=== PATIENT | female | born 1975 | race Caucasian/White ===

== ENCOUNTER 2025-03-25 16:18 | Emergency (ER) | payer OTHER, SELFPAY ==
--- OUTSIDE RECORDS SUMMARY | 2024-10-18 12:45 | XMS_ITS ---
Author Organization [facility] Servic es Address [address] [place] [address] Care Team Providers Care Gas Line Repairer Name Role Phone Brittney Dillon Primary Care Provider [phone] Allergies No Known Allergies REASON FOR VISIT MED REFILL Medications Medication SIG (Take, Route, Frequency, Duration) Notes Start Date End Date Status Levothyroxine Sodium 100 MCG Tablet 1 ta blet in the morning on an empty stomach Orally Once a day; Duration: 30 day(s) ActiveFLUoxetine HCl 20 MG Capsule1 capsule Orally Once a day; Duration: 30 days 5ActiveVyvanse 30 MG Capsule1 capsule in the morning Orally Once a day; Duration: 30 days5ActiveVentolin HFA 108 (90 Base) MCG/ACT Aerosol Solution2 puff as needed Inhalation every 4 hrs; Duration: 30 dudqAZA6407/29/2021 Active Vital Signs Temperature 97.0 degrees Fahrenheit 10/19/19 25 Blood pressure systolic 133 mm Hg 10/19/19 25 Blood pressure diastolic 78 mm Hg 025 Heart Rate 81 /min 10/18/2024 Respiratory Rate 16 /min 10/18/2024 Height 5 ft 6 in in 10/18/2024 Weight 116 lbs 10/18/2024 BMI 18.72 kg/m2 10/18/2024 Oximetry 97 % 10/18/2024 Encounters Encounter Location Date Provider Diagnosis [facility] [address] [facility] [place] [address] 10/18/2024 Brittney Dillon Acquired hypothyroid ism E03.9 ; Major depressive disorder, recurrent episode, moderate F33.1 and Adult ADHD F90.9 Assessments Encounter Date Diagnosis (ICD Code) Assessment Notes Treatment Notes Treatment Clinical Notes Section Notes 10/18/2024 Acquired hypothyroidism (ICD-10 - E03.9) 10/18/2024Major depressive disorder, recurrent episode, moderate (ICD-10 - F33.1)10/18/2024dult ADHD (ICD-10 - F90.9)10/18/2024OtherBody Mass Index: Care Instructions material was published, Body Mass Index: Care Instructions material was printed Plan Of Treatment Medication Medication Name Sig Start Date Stop Date Notes Levothyroxine Sodium 100 MCG Tablet 1 ta blet in the morning on an empty stomach Orally Once a day; Duration: 30 day(s) FLUoxetine HCl 20 MG Capsule1 capsule Orally Once a day; Duration: 30 days 09/18/2024Vyvanse 30 MG Capsule1 capsule in the morning Orally Once a day; Duration: 30 days10/18/2024Treatment Notes Assessment Notes Other Body Mass Index: Car e Instructions material was published, Body Mass Index: Care Instructions material was printed Next Appt Details Provider Name:Ro flynn, 03/31/2025 11:15:00 AM, [address] [place], [address], Provider Name:Ro flynn, 04/07/2025 11:45:00 AM, [address] [place], [address], Provider Name:Ro flynn, 04/14/2025 11:00:00 AM, [address] [place], [address], Provider Name:Brittney dee, 04/21/2025 09:30:00 AM, [address], [address], [place], [address], Provider Name:Ro flynn, 04/21/2025 10:15:00 AM, [address] [place], [address], Provider Name:Ro flynn, 04/28/2025 12:30:00 PM, [address] [place], [address], History and Physical Notes * HPI (History of Present Illness) CategorySub-CategoryDetailNotesCategory NotesConstitutionalPt is here today for to transfer care and med refills. Pt states the fluoxetine may need to be incre ased. Pt states when she was last here jeff ordered her to go get labs done for her hormones and she has not gotten them done yet due to family issues. Progress Notes * CAMRON GONZALEZ MDOB: (49 yo F)Acc No.[id number]:10/18/2024 Progress Notes Patient: Fidelina CAMRON CALLES Michael :?Brittney Bolivar Dillon, ARPITA-CDOB:1975???Age:48 Y ???Sex:FemaleDate:10/18/2024Phone:[phone]:[address] [place], [place] [id number] Subjective: * Chief Complaints: * M ED REFILL * HPI: ???Constitutional:?Pt is here today for to transfer care and med refills. Pt states the fluoxetine may need to be increased. Pt states when she was last here jeff ordered her to go get labs done for her hormones and she has not gotten them done yet due to family issues. * ROS: ???General Review of Systems:?General?Denies fever, chills, weight loss.?Eyes?Denies vision changes, no double vision or blurry vision. .?HEENT?Denies sore throat, ear pain., Denies fevers , chills, Denies nasal congestion, or pressure, Denies hoarseness, change in voice, difficulty swallowing.?Cardiovascular?Denies chest pain, palpitations, exertional dyspnea.?Respiratory?Denies cough, dyspnea, wheezing, sputum production, hemoptysis.?Gastrointestinal?Denies abdominal pain, nausea, vomiting, diarrhea, or constipation. Denies blood in stool or changes in bowel habits..?Genitourinary?Denies urgency, frequency, dysuria, hem aturia.?Musculoskeletal?Denies joint pain, myalgias.?Dermatology?Denies rashes o r lesions.?Neurological?Denies any lightheadedness, dizziness, headache, new numbness or tingling in hands or feet. .? * Medical History: Mild Intermittent Asthma Hypothyroidism Anxiety and Depression PTSD ADHD Vitiligo Retrolisthesis of C3 on C4 Medical History Verified * Surgical History: Right wrist surgeries x 3 ? Ablation ? Tubal Ligation 2021? Surgical History verified.? * Hospitalization/Major Diagno stic Procedure: No Hospitalization Documented.? Hospitalization Verified.? * Family History: F ather: alive, diagnosed with Cancer, Hypertension. M other: alive, diagnosed with Hypertension. 1 brother(s) , 1 sister(s) . 1 son(s) , 1 daughter(s) - healthy. . F amily History Verified.. * Social History: Social History Verified. No Social History documented. * Medications: T akingFLUoxetine HCl 10 MG Capsule 1 capsule Orally Once a day Levothyroxine Sodium 100 MCG Tablet 1 tablet in the morning on an empty stomach Orally Once a day Ventolin HFA 108 (90 Base) MCG/ACT Aerosol Solution 2 puff as needed Inhalation every 4 hrs , Notes to Pharmacist: PRNVyvanse 30 MG Capsule 1 capsule in the morning Orally Once a day Medication List reviewed and reconciled with the patientTaking FLUoxetine HCl 10 MG Capsule 1 capsule Orally Once a day Taking Levothyroxine Sodium 100 MCG Tablet 1 tablet in the morning on an empty stomach Orally Once a day Taking Ventolin HFA 108 (90 Base) MCG/ACT Aerosol Solution 2 puff as needed Inhalation every 4 hrs , Notes to Pharmacist: PRNTaking Vyvanse 30 MG Capsule 1 capsule in the morning Orally Once a day Medication List reviewed and reconciled with the patient * Allergies: N .K.D.A.yesAllergies Verified. Objective: * Vitals: H t: 5 ft 6 in, Wt: 116 lbs, BMI:18.72Index, Temp: 97.0 F, BP: 133/78 mm Hg, SaO2:97%, HR: 81 /min, RR: 16 /min. Assessment: * Assessment: 1.?Acquired hypothyroidism - E03.9???2.?Major depressive disorder, recurrent episode, moderate - F33.1???3.?Adult ADHD - F90.9??? Plan: * Treatment: Refill Levothyroxine Sodium Tablet, 100 MCG, 1 tablet in the morning on an empty stomach, Orally, Once a day, 30 day(s), 30, Refills 1.??2.?Major depressive disorder, recurrent episode, moderate? Refill FLUoxetine HCl Capsule, 20 MG, 1 capsule, Orally, Once a day, 30 days, 30, Refills 1.? 3.?Adult ADHD? Refill Vyvanse Capsule, 30 MG, 1 capsule in the morning, Orally, Once a day, 30 days, 30 Capsule, Refills 0.??4.?Others? Notes: Body Mass Index: Care Instructions material was published, Body Mass Index: Care Instructions material was printed?? * Preventive Medicine: ??COUNSELING:?Communication to patient:?Counseling for Nutrition Provided?Yes ?Counseling for Physical Activity Provided?Yes ?BMI management provided?Yes ?Nutrition/Dietary Counseling provided Yes Billing Information: * Procedure Codes: * Electronic signature of Brittney Dillon CNP on 03/25/2025 at 05:05 PM EDTSign off status: Pending * Provider: KIMBERLYN Watson Date: 0 10/18/2024 Generated for Printing/Faxing/eTransmitting on:?03/25/2025 05:05 PM EDT
--- OUTSIDE RECORDS SUMMARY | 2025-02-13 09:15 | XMS_ITS ---
Author Organization [facility] Address [address] [place] [address] Care Team Providers Care Sales And Leasing Consultant Name Role Phone Brittney Dillon Primary Care Provider Ro Castro Unavailable [phone] REASON FOR VISIT BH F/U Encounters Encounter Location Date Provider Diagnosis [facility] [address] [place] [address] 02/13/2025 Ro Castro Plan Of Treatment Next Appt Details Provider Name:Ro flynn, 03/31/2025 11:15:00 AM, [address] [place], [address], Provider Name:Ro flynn, 04/07/2025 11:45:00 AM, [address], [place], [address], Provider Name:Ro flynn, 04/14/2025 11:00:00 AM, [address], [place], [address], Provider Name:Brittney dee, 04/21/2025 09:30:00 AM, [address], [address], [place], [address], Provider Name:Ro flynn, 04/21/2025 10:15:00 AM, [address], [place], [address], Provider Name:Ro flynn, 04/28/2025 12:30:00 PM, [address] [place], [address], Progress Notes * CAMRON GONZALEZ MDOB: (49 yo F)Acc No.[id number]:02/13/2025 Behavioral Health Patient: Fidelina ANGELCAMRON TEAGUE :?Ro NogueramDOB:1975???Age:49 Y???Sex: FemaleDate:02/13/2025Phone:[phone]:[address] [place], [place] [id number]:Brittney Dillon Subjective: * Chief Complaints: * B H F/U Billing Information: * Procedure Codes: Care Plan Details* * Electronic signature of HEATH Esquivel on 03/25/2025 at 05:04 PM EDTSign off status: Pending * Provider: Mariel Castro Date: 0 02/13/2025 Generated for Printing/Faxing/eTransmitting on:?03/25/2025 05:04 PM EDT
--- OUTSIDE RECORDS SUMMARY | 2025-02-24 07:15 | XMS_ITS ---
Author Organization [facility] Address [address] [place] [address] Care Team Providers Care Head Filter Press Tender Name Role Phone Brittney Dillon Primary Care Provider [phone] Ro Castro Unavailable [phone] REASON FOR VISIT BH F/U Encounters Encounter Location Date Provider Diagnosis [facility] [address] [place] [address] 02/24/2025 Ro Castro Plan Of Treatment Next Appt Details Provider Name:Ro flynn, 03/31/2025 11:15:00 AM, [address] [place], [address], Provider Name:Ro flynn, 04/07/2025 11:45:00 AM, [address], [place], [address], Provider Name:Ro flynn, 04/14/2025 11:00:00 AM, [address], [place], [address], Provider Name:Brittney dee, 04/21/2025 09:30:00 AM, [address], [address], [place], [address], Provider Name:Ro flynn, 04/21/2025 10:15:00 AM, [address], [place], [address], Provider Name:Ro flynn, 04/28/2025 12:30:00 PM, [address] [place], [address], Progress Notes * CAMRON GONZALEZ MDOB: (49 yo F)Acc No.[id number]:02/24/2025 BH F/U - Patient Patient: Fidelina CAMRON CALLES :?Ro NogueramDOB:1975???Age:49 Y???Sex: FemaleDate:02/24/2025Phone:[phone]:[address] [place], [place] [id number]:Brittney Dillon Subjective: * Chief Complaints: * B H F/U Billing Information: * Procedure Codes: Care Plan Details* * Electronic signature of HEATH Esquivel on 03/25/2025 at 05:04 PM EDTSign off status: Pending * Provider: Mariel Castro Date: 0 02/24/2025 Generated for Printing/Faxing/eTransmitting on:?03/25/2025 05:04 PM EDT
--- OUTSIDE RECORDS SUMMARY | 2025-03-17 09:00 | XMS_ITS ---
Author Organization [facility] Address [address] [place] [address] Care Team Providers Care Global Clinical Leader Name Role Phone Wilma Brittney Primary Care Provider Ro Castro Unavailable [phone] REASON FOR VISIT F/U Medications Medication SIG (Take, Route, Frequency, Duration) Notes Start Date End Date Status Vyvanse 30 MG Capsule 1 capsule in the m orning Orally Once a day; Duration: 30 days 5ActiveFLUoxetine HCl 20 MG Capsule1 capsule Orally Once a day; Duration: 30 days5ActivePrempro 0.3-1.5 MG TabletOral; Duration: 28 DaysActiveSpironolactone 25 MG TabletOral; Duration: 30 DaysActiveVentolin HFA 108 (90 Base) MCG/ACT Aerosol Solution2 puff as needed Inhalation every 4 hrs; Duration: 30 vmogINT73/24/2022ActiveLevothyroxine Sodium 100 MCG Tablet1 tablet in the morning on an empty stomach Orally Once a day; Duration: 30 day(s)Active Encounters Encounter Location Date Provider Diagnosis [facility] [address] [place] [address] 03/17/2025 Ro Castro Post traumatic stres s disorder (PTSD) F43.10 and Major depressive disorder, recurrent episode, moderate F33.1 Assessments Encounter Date Diagnosis (ICD Code) Assessment Notes Treatment Notes Treatment Clinical Notes Section Notes 03/17/2025 Post traumatic stress disorder ( PTSD) (ICD-10 - F43.10) 03/17/2025Major depressive disorder, recurrent episode, moderate (ICD-10 - F33.1) Plan Of Treatment Next Appt Details Follow Up: 3 Weeks, Reason: Provider Name:Ro flynn, 03/31/2025 11:15:00 AM, [address], [place], [address], Provider Name:Ro flynn, 04/07/2025 11:45:00 AM, [address], [address], [place], [address], Provider Name:Ro flynn, 04/14/2025 11:00:00 AM, [address], [place], [address], Provider Name:Brittney dee, 04/21/2025 09:30:00 AM, [address], [address], [place], [address], Provider Name:Ro flynn, 04/21/2025 10:15:00 AM, [address], [place], [address], Provider Name:Ro flynn, 04/28/2025 12:30:00 PM, [address], [place], [address], Progress Notes * CAMRON GONZALEZ MDOB: (49 yo F)Acc No.[id number]:03/17/2025 F/U - Family Patient: ACMRON BAÑUELOS :?Ro NogueramDOB:1975???Age:49 Y???Sex: FemaleDate:03/17/2025Phone:[phone]:[address] [place], [place] [address]Pcp:Brittney Dillon Subjective: * Chief Complaints: * 1 . F/U. * Medications: T aking Levothyroxine Sodium 100 MCG Tablet 1 tablet in the morning on an empty stomach Orally Once a day , Taking FLUoxetine HCl 20 MG Capsule 1 capsule Orally Once a day , Taking Prempro 0.3-1.5 MG Tablet Oral , Taking Spironolactone 25 MG Tablet Oral , Taking Ventolin HFA 108 (90 Base) MCG/ACT Aerosol Solution 2 puff as needed Inhalation every 4 hrs , Notes to Pharmacist: PRN, Taking Vyvanse 30 MG Capsule 1 capsule in the morning Orally Once a day Assessment: * Assessment: 1.?Post traumatic stress disorder (PTSD) - F43.10 (Primary)???2.?Major depr essive disorder, recurrent episode, moderate - F33.1??? Plan: * Procedure Codes: 9 0837 PSYTX EST PT&/FAMILY 60 MIN (53+) * Follow Up: 3 Weeks Billing Information: * Procedure Codes: 06601 PSYTX EST PT&/FAMILY 60 MIN (53+). Care Plan Details* Problem B H F/U Progress Note PresentAt Appointment:?Patient Session Type:?Face to Face Start Time/End Time:?Start: 1:06End: 2:05 Mental Status ExaminationOrientation:?Oriented x 4 Mood:?Depressed;Anxious Affect:?Appropriate Insight/Judgment:?Fair Thought Process:?Circumstantial Speech:?Normal InterventionRisk Assessment:?PT denies all areas of risk. No contrary indications present. Therapy Modality:?cognitive behavioral Interventions:?assess safety risks;cognitive challenging;cognitive refocusing;cognitive reframing;encourage expression of needs;exploration of relationship problems;exploration of coping skills;emotion regulation;healthy boundaries;increase awareness of warning signs to triggers;reflective listening;problem-solve barriers;supportive reflection;process trauma/significant life events;role-play/behavioral reversal;mindfulness training;identify unmet emotional needsComments :SENIOR SOLUTIONS WORKFLOW CONSULTANT offered supportive listening and validation of patients feelings. SENIOR SOLUTIONS WORKFLOW CONSULTANT provided feedback as needed. SENIOR SOLUTIONS WORKFLOW CONSULTANT worked with patient on processing the changes in her life. SENIOR SOLUTIONS WORKFLOW CONSULTANT worked with patient on challenging her thoughts, worked on reframing and redirection. SENIOR SOLUTIONS WORKFLOW CONSULTANT encouraged pt to journal her emotions and to work on her own self-esteem and goals. Response to Intervention:?Patient reports that she has been struggling with her emotions and the changes in her life. Patient has been struggling with the break up and moving home to her mothers home and feels like a failure. Patient discussed her emotions, self-awareness and trying to figure out what she wants and who she is? Patient reports she has just been keeping herself busy. Progress:?low * ign off status: Completed true * Provider: Mariel Castro Date: Generated for Printing/Faxing/eTransmitting on:?03/25/2025 05:05 PM EDT
--- OUTSIDE RECORDS SUMMARY | 2025-03-24 07:00 | XMS_ITS ---
Author Organization [facility] Address [address] [place] [address] Care Team Providers Care Senior Control Systems Engineer Name Role Phone Brittney Dillon Primary Care Provider Ro Castro Unavailable [phone] REASON FOR VISIT BH F/U Encounters Encounter Location Date Provider Diagnosis [facility] [address] [place] [address] 03/24/2025 Ro Castro Plan Of Treatment Next Appt Details Provider Name:Ro flynn, 03/31/2025 11:15:00 AM, [address] [place], [address], Provider Name:Ro flynn, 04/07/2025 11:45:00 AM, [address], [place], [address], Provider Name:Ro flynn, 04/14/2025 11:00:00 AM, [address], [place], [address], Provider Name:Brittney dee, 04/21/2025 09:30:00 AM, [address], [address], [place], [address], Provider Name:Ro flynn, 04/21/2025 10:15:00 AM, [address], [place], [address], Provider Name:Ro flynn, 04/28/2025 12:30:00 PM, [address] [place], [address], Progress Notes * CAMRON GONZALEZ MDOB: (49 yo F)Acc No.[id number]:03/24/2025 BH F/U - Patient Patient: Fidelina CAMRON CALLES :?Ro NogueramDOB:1975???Age:49 Y???Sex: FemaleDate:03/24/2025Phone:[phone]:[address] [place], [place] [address]Pcp:Brittney Dillon Subjective: * Chief Complaints: * B H F/U Billing Information: * Procedure Codes: Care Plan Details* * Electronic signature of HEATH Esquivel on 03/25/2025 at 05:04 PM EDTSign off status: Pending * Provider: Mariel Castro Date: Generated for Printing/Faxing/eTransmitting on:?03/25/2025 05:04 PM EDT
[2025-03-25 16:25] VITALS: BP 128/80; PULSE 84; TEMP 36.6; O2SAT 100; BMI 18.4
--- NOTE | 2025-03-25 16:38 | ED.WOUNDLAC1 ---
HPI - Wound/Laceration General Chief Complaint: Wound/Laceration Stated Complaint: Laceration Time Seen by Provider: 03/25/25 16:34 Source: patient Mode of arrival: walk-in Limitations: no limitations History of Present Illness HPI narrative: 49 year old female presents to the ED for a laceration to her left index finger. She accidentally cut herself with scissors at work today. Denies weakness, N/T. She has full ROM to the digit. Tetanus status is unknown. States she applied skin glue to the area, but could not get the bleeding under control. She has since removed the skin adhesive. Related Data Home Medications ?Medication ?Instructions ?Recorded ?Confirmed No Known Home Medications 03/25/25 03/25/25 Allergies Allergy/AdvReac Type Severity Reaction Status Date / Time No Known Drug Allergies Allergy Verified 03/25/25 16:25 Review of Systems ROS Constitutional Denies: fever or chills Cardiovascular Denies: chest pain Respiratory Denies: shortness of breath Musculoskeletal Reports: extremity pain Integumentary/Breast Reports: skin tenderness and sores Neurological Denies: numbness in extremities or weakness in extremities PFSH PFSH Social History Little interest or pleasure in doing things: not at all Feeling down, depressed, or hopeless: not at all Exam Constitutional Vital Signs, click to edit/add: Last Vital Signs Temp 97.8 F 03/25/25 16:25 Pulse 84 03/25/25 16:25 Resp 16 03/25/25 16:25 BP 128/80 03/25/25 16:25 Pulse Ox 100 03/25/25 16:25 O2 Del Method Room Air 03/25/25 16:25 Common normals: no apparent distress and oriented x3 General appearance: cooperative Eye Common normals: conjunctivae normal and no scleral icterus Neck & C-Spine Common normals: supple Chest Chest: symmetrical chest wall rise Respiratory Common normals: normal respiratory effort Effort & inspection: able to speak in complete sentences and symmetric chest movement Cardio Common normals: regular rate Peripheral pulses: radial pulses present Extremity Other: V-shaped 1 cm laceration to left proximal medial index finger. Mild bleeding. Full ROM to the digit. Distal sensation intact. Wound appears superficial. Neuro Common normals: oriented x3 and moves all extremities Sensorium/orientation: awake and alert Speech: speech normal Course Vital Signs Vital signs: Vital Signs Temperature 97.8 F 03/25/25 16:25 Pulse Rate 84 03/25/25 16:25 Respiratory Rate 16 03/25/25 16:25 Blood Pressure 128/80 03/25/25 16:25 Pulse Oximetry 100 03/25/25 16:25 Oxygen Delivery Method Room Air 03/25/25 16:25 Temperature 97.8 F 03/25/25 16:25 Pulse Rate 84 03/25/25 16:25 Respiratory Rate 16 03/25/25 16:25 Blood Pressure 128/80 03/25/25 16:25 Pulse Oximetry 100 03/25/25 16:25 Oxygen Delivery Method Room Air 03/25/25 16:25 MDM - Wound/Laceration MDM Narrative Medical decision making narrative: Her wound was cleansed and sutures were placed. She tolerated the procedure well. A dressing was applied. Her tetanus status was updated. Follow up with pcp for a recheck. Suture removal in 7-10 days. Differential Diagnosis Differential diagnosis: Likely laceration Discharge Plan Discharge Chief Complaint: Wound/Laceration Clinical Impression: Finger laceration Patient Disposition: Home, Self-Care Time of Disposition Decision: 17:10 Condition: Good Mode of Transportation: Private Vehicle Prescriptions / Home Meds: No Action No Known Home Medications Print Language: Luxembourgish Instructions: Finger Laceration (ED) Additional Instructions: Watch for signs of infection: redness, purulent drainage, increased warmth, or swelling. The sutures will need to be removed in 7-10 days. Keep the wound clean and dry. Do not soak the wound. Discharge Date/Time: 03/25/25 17:29 Procedures ED Laceration Laceration Laceration 1: Site: other (left index finger) Size (cm): 1 Description: flap and irregular Depth: simple, single layer Anesthetic used: lidocaine 1% Anesthesia technique: nerve block Pre-repair: wound explored and irrigated extensively Skin layer closed with: other (Prolene) Size (cm): 5-0 Number of sutures: 2 Technique: simple, interrupted
--- OUTSIDE RECORDS SUMMARY | 2025-03-25 17:05 | XMS_ITS | Clinical Summary ---
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 Name Role Phone Brittney Pa PA-C Primary Care Provid er Celso Toro DO Unavailable Allergies Active AllergyReactionsCriticalityNoted OzkmNgazruatIhmnazpKddtZjz32/26/2023 Uxphwsjb81/26/2023 Other Reaction(s): Unknown Medications MedicationSigDispense QuantityRefillsLast FilledStart DateEnd DateStatus meloxicam (Mobic) 15 MG tablet Take 15 mg by mouth in the morning.07/28/2022ctive levothyroxine (Synthroid, Levoxyl) 100 MCG tablet 1 (one) time each day at the same time.Active fluticasone (Flonase) 50 MCG/ACT nasal spray Indications:Acute non-recurrent maxillary sinusitisAdminister 2 sprays into each nostril Daily as needed for rhinitis. Shake gently. Before first use,prime pump. After use, clean tip and replace cap. 16 g 01/28/2023ctive azithromycin (Zithromax Z-Ramón) 250 MG tablet Indications:COVID-19Take as directed 6 tablet 06/07/2023ctive Additional Information Patient not taking.Reported on 11/27/2024 DULoxetine (Cymbalta) [address] capsule Take 30 mg by mouth Daily09/14/2023ctive Vyvanse 40 MG capsule Take 40 mg by mouth in the morning.4Active methylPREDNISolone (Medrol Dospak) 4 MG tablets Indications:Cough, unspecified type,Acute non-recurrent maxillary sinusitisAs directed 21 tablet 5Active Additional Information Patient not taking.Reported on 11/27/2024 albuterol HFA 90 mcg/act inhaler Indications:Cough, unspecified typeInhale 2 puffs every 4 (four) hours if needed for wheezing or shortness of breath 18 g 5Active fluconazole (Diflucan) 150 MG tablet Indications:Vaginal candidaTake 1 tablet (150 mg) by mouth Daily Take 1 tab at onset of symptoms and may repeat x 1 in 72 hours if no improvement 2 tablet 5Active Additional Information Patient not taking.Reported on 11/27/2024 FLUoxetine (PROzac) 20 MG capsule Take 20 mg by mouth DailyActive Ruxolitinib Phosphate (Opzelura) 1.5 % cream Indications:VitiligoApply to affected areas, twice a day when flared, 30 day supply 60 g 1105Active estrogen, conjugated,-medroxyPROGESTERone (Prempro) 0.3-1.5 MG tablet Indications:Symptomatic menopausal or female climacteric statesTake 1 tablet by mouth Daily 30 tablet 110/6Active spironolactone (Aldactone) 25 MG tablet Indications:HirsutismTake 2 tablets (50 mg) by mouth Daily 60 tablet 110/6Active Active Problems ProblemNoted DateDiagnosed XjiyPmggznydaw69/24/2024Encounter for sterilization 11/27/2023Lichen yokgrxudk85/24/2024Excessive and frequent menstruation 11/27/2023Menorrhagia with regular cycle11/27/2023Other acute postprocedural pain11/27/2023Other chronic pain11/27/20232853Isbjtweu56/24/2024 Encounters DateTypeDepartmentCare LxuvMzgevsjqqnq45/08/2025Results Follow-Up [facility] [address] [place] [address] Paulette Verdugo MD IGP, APT HPV,RFX 16/18,4508/11/2024 2:15 PM EDTOffice Visit [facility] [address] [place] [address] Paulette Verdugo MD Encounter for screening for cervical cancer (Primary Dx); Encounter for gynecological examination without abnormal finding; Encounter for screening mammogram for malignant neoplasm of breast; Amenorrhea; Lichen sclerosus; Excessive and frequent menstruation; Menorrhagia with regular cycle; Vitiligo; Symptomatic menopausal or female climacteric states; Hirsutism; Colon cancer msguhotkn47/06/2025Travelfrom Last 3 Months Family History Medical HistoryRelationNameCommentsNo Known ProblemsFatherNo Known Problems MotherRelationNameStatusCommentsBrotherAliveDaughterAliveFatherAliveMotherAlive SisterAliveSonAlive Social History Tobacco UseTypesPacks/DayYears UsedDateSmoking Tobacco: NeverSmokeless Tobacco: Never Tobacco Cessation:Counseling Given: Not Answered Alcohol UseStandard Drinks/WeekCommentsYes0 (1 standard drink = 0.6 oz pure alcohol)caffeine: 2-3 cups per day coffeeCommentsUnknownSex and Gender InformationValueDate RecordedSex Assigned at BirthNot on fileLegal SexFemale 08/17/2022 6:51 PM EDTGender IdentityNot on fileSexual OrientationNot on file Last Filed Vital Signs Vital SignReadingTime TakenCommentsBlood Xzsztkmp195/76001/08/2025 2:16 PM EDT Wptlc3689 12:20 PM AEBLhgfnjglzjy68.4 ??C (97.6 ??F)06/18/2024 12:20 PM ESTRespiratory Rate--Oxygen Farswxdxqc67%06/18/2024 12:20 PM ESTInhaled Oxygen Concentration--Vndcng55.1 kg (117 lb)01/08/2025 2:16 PM UNMXbwnfj361.1 cm (5' 5 )11/28/2023 8:59 AM EDTBody Mass Index19.47011/28/2023 8:59 AM EDT Plan of Treatment Not on file Procedures Procedure NamePriorityDate/TimeAssociated PnapeeekvEhcsapauZWFRwwlalx24/11/2024 2:42 PM EDT Symptomatic menopausal or female climacteric states ZXPPMUGDGTxwxiyt50/06/2025 2:42 PM EDT Symptomatic menopausal or female climacteric states IGP, APT HPV,RFX 16/18,88Fglhufr03/06/2025 12:00 AM EDT Encounter for gynecological examination without abnormal finding Encounter for screening for cervical cancer from Last 3 Months Results * Estradiol (01/08/2025 2:42 PM EDT)Specimen (Source)Anatomical Location / LateralityCollection Method / VolumeCollection TimeReceived TimeBloodVenous blood specimen / Unknown Narrative Authorizing ProviderResult TypeResult StatusPaulette Verdugo [facility] BLOOD ORDERABLESFinal ResultPerforming OrganizationAddressCity/State/ZIP CodePhone Number [facility] * Follicle stimulating hormone (01/08/2025 2:42 PM EDT)Specimen (Source) Anatomical Location / LateralityCollection Method / VolumeCollection Time Received TimeBloodVenous blood specimen / Unknown Narrative Authorizing ProviderResult TypeResult StatusPaulette Verdugo MDQUINLAN [facility] BLOOD ORDERABLESFinal ResultPerforming OrganizationAddressCity/State/ZIP CodePhone Number [facility] * IGP, APT HPV,RFX 16/18,45 (01/08/2025 12:00 AM EDT)ComponentValueRef RangeTest MethodAnalysis TimePerformed AtPathologist SignatureDiagnosis:CommentLABCORP Comment: NEGATIVE FOR INTRAEPITHELIAL LESION OR MALIGNANCY. CELLULAR CHANGES ASSOCIATED WITH ATROPHY AND INFLAMMATION ARE PRESENT. Specimen Adequacy:CommentLABCORPComment: Satisfactory for evaluation. ??Endocervical and/or squamous metaplastic cells (endocervical component) are present. Clinician Provided ICD10:CommentLABCORPComment: Z01.419 Z12.4 Performed By:CommentLABCORPComment:Lisa Pedroza, [employer] ([facility])Cyto Comments.LABCORPNote:CommentLABCORPComment: The Pap smear is a screening test designed to aid in the detection of premalignant and malignant conditions of the uterine cervix. ??It is not a diagnostic procedure and should not be used as the sole means of detecting cervical cancer. ??Both false-positive and false-negative reports do occur. Test Methodology:CommentLABCORPComment: This liquid based ThinPrep(R) pap test was screened with the use of an image guided system. HPV AptimaNegativeNegativeLABCORPComment: This nucleic acid amplification test detects fourteen high-risk HPV types (16,18,31,33,35,39,45,51,52,56,58,59,66,68) without differentiation. Specimen (Source)Anatomical Location / LateralityCollection Method / Volume Collection TimeReceived TimeVaginal Fluid/12/2024 Narrative [facility] - 01/10/2025 11:07 AM EDT Performed at: 01 - [facility] ??[id number] [employer] Vendor: Lindsey Garcia MD, Phone: ??[phone] Performed at: ??02 - [facility] [address] ??[id number] [employer]endor: Lindsey Garcia MD, Phone: ??[phone] Specimen Comment: No. of containers..01 ThinPrep Vial Authorizing ProviderResult TypeResult StatusPaulette Verdugo [facility] BLOOD ORDERABLESFinal ResultPerforming OrganizationAddressCity/State/ZIP CodePhone Number [facility] from Last 3 Months Insurance Care Teams Team MemberRelationshipSpecialtyStart DateEnd Date Brittney Pa PA-C [address] [place] [address] [place] [address] [facility]01/28/23 Celso Toro, [address] [place] [address] Otolaryngology11/28/23
--- OUTSIDE RECORDS SUMMARY | 2025-03-25 17:05 | XMS_ITS | Patient Health Record ---
Author Organization [facility] Address [address] [place] [address] Care Team Providers Care Epic Cadence Specialists Name Role Phone Brittney Dillon Primary Care Provider [phone] John Rodriguez Unavailable [phone] Brittney Pa Unavailable [phone] Ro Borjas Unavailable [phone] Allergies No Known Allergies Results Component Value Reference Range Flag Notes Follicle Stimulating Hormone Reviewed date:09/12/2024 10:50:52 AM Interpretation: Performing Lab: Notes/Report: Reason for Exam Hot flashes;Low libido Reason for Exam Hot flashes Reason for Exam Adult ADHD;Hot flashes Follicle Stimulating Hormone 27.5 FEMALE NORMALS (PREMENOPAUSE) MID-FOLLICULAR PHASE: 3.9-8.8 mIU/mL MID-CYCLE PEAK: 4.5-22.5 mIU/mL MID-LUTEAL PHASE: 1.8-5.1 mIU/mL FEMALE NORMALS (POSTMENOPAUSE): 16.7-113.6 mIU/mL MALE NORMALS: 1.3-19.3 mIU/mL Estradiol Reviewed date:09/12/2024 10:50:26 AM Interpretation: Performing Lab: Notes/Report: Reason for Exam Hot flashes;Low wrevjxNtvscxdbv54.4. pg/mL Adult Female Range Follicular phase 12.5 - 166.0 Ovulation phase 85.8 - 498.0 Luteal phase 43.8 - 211.0 Postmenopausal <6.0 - 54.7 1st trimester 215.0 - >4300.0 Alex ECLIA methodology Performed at: [facility] [address] [id number] [employer] Professional: Jose Beckford PhD, Phone: [phone] Luteinizing Hormone Reviewed date:09/12/2024 10:50:34 AM Interpretation: Performing Lab:, [facility], [facility] [address] [place] Notes/Report: Reason for Exam Hot flashes;Low libidoLuteinizing Dwossbr99.2. m[iU]/mL Adult Female Range Follicular phase 2.4 - 12.6 Ovulation phase 14.0 - 95.6 Luteal phase 1.0 - 11.4 Postmenopausal 7.7 - 58.5 Performed at: [address] [id number] [employer] Professional: Jose Beckford PhD, Phone: [phone] Iron and TIBC Profile Reviewed date:09/12/2024 10:51:36 AM Interpretation: Performing Lab: Notes/Report: Reason for Exam Hot flashes;Low libido Reason for Exam Hot flashes Reason for Exam Adult ADHD;Hot tyqgdvaBnov82846-996 ug/dLNTotal Iron Binding Drnlorkj752515-625 ug/dLN% Iron Pytarklowd37.220-50 %YWbfbyqvtnbj649413-930 mg/dLNComplete Blood Count Auto Diff Reviewed date:09/11/2024 10:00:34 AM Interpretation: Performing Lab:, [facility], [address] , [place] Notes/Report: Reason for Exam Hot flashes;Low libidoWhite Blood Count5.93.8-11.6 10*3/uLN Uncorrected WBC5.93.8-11.6 10*3/uLNRed Blood Count4.323.60-5.00 10*6/uLN Yrbzzhknfo06.511.8-15.4 g/qLWOpmdjertxg89.034.0-46.4 %NMean Corpuscular Volume 92.580-100 fLNMean Corpuscular Fiagrumxog50.324.7-34.3 pgNMean Corpuscular HGB Conc33.832.0-35.0 g/dLNRed Cell Distribution Width12.811.9-15.3 %NPlatelet Count 136177-030 10*3/uLNMean Platelet Volume7.66.3-10.7 fLNNeutrophils % (Auto)54.6. %Lymphocytes % (Auto)30.5. %Monocytes % (Auto)7.0. %Eosinophils % (Auto)6.0. % Basophils % (Auto)1.9. %NRBC%0.10-0.5 /100{WBC}NNeutrophils # (Auto)3.21.8-7.7 10*3/uLNLymphocytes # (Auto)1.81.00-4.8 10*3/uLNMonocytes # (Auto)0.40.0-0.8 10*3/uLNEosinophils # (Auto)0.40.0-0.45 10*3/uLNBasophils # (Auto)0.10.0-0.2 10*3/uLNVit. B12/Folate Profile Reviewed date:09/12/2024 10:50:58 AM Interpretation: Performing Lab: Notes/Report: Reason for Exam Hot flashes;Low libido Reason for Exam Hot flashes Reason for Exam Adult ADHD;Hot flashesVitamin C90853043-290 pg/pPLRflrsu59.1>5.9 ng/mL Folate reference range: >5.9 ng/ml The WHO technical consultation on folate and vitamin b12 deficiencies has determined that folate concentrations less than 4 ng/ml are considered deficient. Thyroid Stimulating Hormone Reviewed date:09/12/2024 10:51:11 AM Interpretation: Performing Lab: Notes/Report: Reason for Exam Hot flashes;Low libido Reason for Exam Hot flashes Reason for Exam Adult ADHD;Hot flashesThyroid Stimulating Hormone1.960.45-5.33 u[iU]/mLNFree T4 (Free Thyroxine) Reviewed date:09/12/2024 10:51:04 AM Interpretation: Performing Lab: Notes/Report: Reason for Exam Hot flashes;Low libido Reason for Exam Hot flashes Reason for Exam Adult ADHD;Hot flashesFree T4 (Free Thyroxine)0.900.61-1.12 ng/dLNTriiodothyronine (T3) Free Reviewed date:09/12/2024 10:51:19 AM Interpretation: Performing Lab:, [facility], [address] [place] Notes/Report: Reason for Exam Hot flashes;Low libidoTriiodothyronine (T3) Free3.152.50-3.90 pg/mLNLipid Panel Reviewed date:09/12/2024 10:51:28 AM Interpretation: Performing Lab: Notes/Report: Reason for Exam Hot flashes;Low libido Reason for Exam Hot flashes Reason for Exam Adult ADHD;Hot sardkpuDcbvyammyvx415103-949 mg/dLN Chol less than 200 mg/dl low risk Chol 201-239 mg/dl borderline risk Chol 240 mg/dl and greater high risk HDL Lozlzlouepo9092-12 mg/dLN HDL CHOL ATP-III CLASSIFICATION Cardiovascular Risk HDL > or equal to 60 mg/dL LOW HDL < 40 mg/dL HIGH Triglyceride w/Drwkps197-528 mg/dLN TRIG ATP III CLASSIFICATION TRIG less than 150 mg/dL Normal TRIG 150-199 mg/dL Borderline high TRIG 200-500 mg/dL High TRIG greater than 500 mg/dL Very high Standard traceable to the Center for Disease Conrtrol and Prevention (CDC) test method. LDL Cholesterol,Inkdhuwize7888-701 mg/dLH LDL ATP III CLASSIFICATION LDL less than 100 mg/dL Optimal LDL 100-129 mg/dL Near or above optimal LDL 130-159 mg/dL Borderline high LDL 160-189 mg/dL High LDL greater than 189 mg/dL Very high VLDL SLUCCNNGSYA52Sqxh/HDL Ratio2.7<5.0Comprehensive Metabolic Panel Reviewed date:09/12/2024 10:51:51 AM Interpretation: Performing Lab:, [facility], [address] [place] Notes/Report: Reason for Exam Hot flashes;Low libido Reason for Exam Hot flashes Reason for Exam Adult ADHD;Hot iltgcrdXttqfhz1154-990 mg/dLN Random Glucose Reference Range is dependent on time and content of last meal. Glucose of more than 200 mg/dL in a nonstressed, ambulatory subject supports the diagnosis of Diabetes Mellitus. ADA recommended reference range Blood Urea Ayxrzfkd118-56 mg/dLNCreatinine0.680.60-1.20 mg/gMJIzfznu268729-162 mmol/LNPotassium3.93.5-5.1 mmol/WBVkxvcell76395-886 mmol/LNCarbon Qgamsvj90.7 21.0-31.0 mmol/LNCalcium8.78.6-10.3 mg/dLNTotal Protein6.66.4-8.9 g/dLNAlbumin Level4.43.5-5.7 g/dLNGlobulin2.2Albumin/Globulin Ratio2.0Bilirubin,Total0.50.3- 1.0 mg/dLNAspartate Amino Uexpjlozmcx8938-98 U/LNAlanine Atkcnlidwiprdcvr101-71 U/LNAlkaline Kcxqruxbvex9239-807 U/LNEstimated GFR>60.0Anion Gap8.26.0-15.0 meq/LN Reason For Referral Reason pt had apt on 01/28 a ttaching note Anxiety, PTSD schedule with Randee Beal Diagnosis 1 Anxiety (F41.9) Referral Organization [facility] Referring Provider First Name Brittney Referring Provider Last Name Wilma Referring Provider Speciality [facility] icine Referred Provider Specialty BH Talk Ther apy Referral Priority Routine Referral Appointment Date 01/28/2025 Medications Medication SIG (Take, Route, Frequency, Duration) Notes Start Date End Date Status Vyvanse 30 MG Capsule 1 capsule in the m orning Orally Once a day; Duration: 30 days 5ActiveLevothyroxine Sodium 100 MCG Tablet1 tablet in the morning on an empty stomach Orally Once a day; Duration: 30 day(s)ActiveFLUoxetine HCl 20 MG Capsule1 capsule Orally Once a day; Duration: 30 days5ActivePrempro 0.3-1.5 MG TabletOral; Duration: 28 DaysActiveSpironolactone 25 MG TabletOral; Duration: 30 DaysActiveVentolin HFA 108 (90 Base) MCG/ACT Aerosol Solution2 puff as needed Inhalation every 4 hrs; Duration: 30 agzhVVM11/24/2022Active Social History Tobacco Use: Social History Observation Description Date Details (start date - stop date) Former Smoker NA - NA Social History GeneralSocial InfoQuestionAnswerNotesTransition of Care:ER/UC/hospital since last office visit?NoSpecialist seen since last office visit?NoSubstance abuse/mental health issues of patient/familyPatient -Denies, Caffeine Use, Stress/Anxiety, DepressionAbility to understand healthcare/treatmentPatient:Good Tobacco Screen:Are you a:former smoker? How long has it been since you last smoked?1-5 yearsSexual Hx:Had sex in the last 12 months (vaginal, oral, or anal)?Yes? withMen only? Use protection?No? Prevention Strategies discussed: OtherSocial/Support Concerns:Patient:NoAlcohol Screening:Did you have a drink containing alcohol in the past year?RhAsaqjn0ItcdfeihmmzzytRuvxshxePqxergobs affecting healthPoor/Risky Behaviors:Denies-Communication Barrier:Language Barrier?:No Problems Problem Type SNOMED Code ICD Code Onset Dates Problem Status W/U Status Risk Notes Problem Autoimmune thyroiditis (26050015) Autoimm une thyroiditis (E06.3) ActiveconfirmedProblemChronic sinusitis (85164842)Chronic sinusitis, unspecified (J32.9)ActiveconfirmedProblemPerioral dermatitis (843629179)Perioral dermatitis (L71.0)ActiveconfirmedProblemAnxiety (61333442)Anxiety (F41.9)Activeconfirmed ProblemDepression (083393666)Depression (F32.9)ActiveconfirmedProblem Hypothyroidism (69702747)Hypothyroidism (E03.9)ActiveconfirmedProblemChronic fatigue syndrome (10955872)Chronic fatigue (R53.82)ActiveconfirmedProblem Difficulty sleeping (482904521)Sleep difficulties (G47.9)ActiveconfirmedProblem Acquired hypothyroidism (976679801)Acquired hypothyroidism (E03.9)Active confirmedProblemMild intermittent asthma (052083268)Mild intermittent asthma without complication (J45.20)ActiveconfirmedProblemHypothyroidism (04772060) Hypothyroidism, unspecified type (E03.9)ActiveconfirmedProblemModerate recurrent major depression (47829606)Major depressive disorder, recurrent episode, moderate (F33.1)ActiveconfirmedProblemAttention deficit hyperactivity disorder (129006262)Adult ADHD (F90.9)ActiveconfirmedProblemAcquired spondylolisthesis (849802479)Retrolisthesis of vertebrae (M43.10)ActiveconfirmedProblem Exacerbation of asthma (360966968)Mild asthma with exacerbation, unspecified whether persistent (J45.901)ActiveconfirmedProblemPosttraumatic stress disorder (62336451)Post traumatic stress disorder (PTSD) (F43.10)ActiveconfirmedProblem Menopause (121706710)Perimenopausal symptoms (N95.1)Activeconfirmed Vital Signs Heart Rate 87 /min 01/13/2025 Bvswlkvmugs06.5 degrees Ykcjuwjuou01/11/2025Respiratory Rate16 /min01/13/2025 Rkoeityd597 %01/13/2025lood pressure urhxtshvd37 mm Hg01/13/20250906Ixpsmj4 ft 6 in in01/13/2025lood pressure eslqczqo737 mm Hg01/13/20251390Ftsxje563 lbs01/13/2025 BMI18.72 kg/m201/13/2025 Encounters Encounter Location Date Provider Diagnosis [facility] [address] [place] [address] 04/01/2024 Brittney Pa Adult ADHD F90.9 [facility] [address] [place] [address] 04/26/2024 Brittneywilmer Wymanson [facility] [place] [address]/08/2023 [facility] [place] [address]/Jennbanner RichardsonAdult ADHD F90.9[facility] [address] [place] [address]/Jennifer RichardsonAdult ADHD F90.9[facility] [place] [address] 07/24/2024Jennifer RichardsonAdult ADHD F90.9[facility] [address] [place] [address]/Zuleikabanner RichardsonInd[facility] [place] [address]/marie Rodriguez Adult ADHD F90.9[facility] [place] [address]/05/2025Jennifer KearneyAdult ADHD F90.9 and Major depressive disorder, recurrent episode, moderate F33.1[facility] [address] [place] [address]/03/2025Jennbanner KearneyAdult ADHD F90.9[facility] [address] [place] [address]/01/2025Jennbanner KearneyAdult ADHD F90.9[facility] [place] [address] 02/12/2025[facility] [address] [place] [address]/11/2024Jennifer KearneyAdult ADHD F90.9[facility] [place] [place] [address]/Kel Wilmercy health anderson hospitalmPost traumatic stress disorder (PTSD) F43.10 and Major depressive disorder, recurrent episode, moder ate F33.1[facility] [place] [address]/Kel WilhelmMajor depressive disorder, recurrent episode, moderate F33.1 and Post traumatic stress disorder (PTSD) F43.10[facility] [address] [facility] [place] [address]/09/2024Kel WilhelmMajor depressive disorder, recurrent episode, moderate F33.1 and Adult ADHD F90.9[facility] [place] [address]/Kel WilhelmAdult ADHD F90.9 ; Major depressive disorder, recurrent episode, moderate F33.1 and Post traumatic stress disorder (PTSD) F43.10[facility] [place] [place] [place] [address] 03/03/2025Kel WilhelmMajor depressive disorder, recurrent episode, moderate F33.1 and Post traumatic stress disorder (PTSD) F43.10[facility] [facility] [place] [address]/Jennifer KearneyAcquired hypothyroidism E03.9 ; Major depressive disorder, recurrent episode, moderate F33.1 and Adult ADHD F90.9[facility] [place] [address]/Jennharsh PaMialba asthma with exacerbation, unspecified whether persistent J45.901 ; Adult ADHD F90.9 ; Acquired hypothyroidism E03.9 ; Vertigo R42 ; Hot flashes R23.2 ; Low libido R68.82 ; Breast cancer screening by mammogram Z12.31 and Colon cancer screening Z12.11[facility] [place] [address]/5Aaron Michael Anxiety F41.9 ; Adult ADHD F90.9 ; Hot flashes R23.2 and Acquired hypothyroidism E03.9[facility] [place] [address]/Jefacundo PaAdult ADHD F90.9 ; Major depressive disorder, recurrent episode, moderate F33.1 ; Hot flashes R23.2and Perimenopausal symptoms N95.1F[facility] [place] [address]/04/2025Jefacundo Case asthma with exacerbation, unspecified whether persistent J45.901 ; Adult ADHD F90.9 and Anxiety F41.9 Assessments Encounter Date Diagnosis (ICD Code) Assessment Notes Treatment Notes Treatment Clinical Notes Section Notes 04/01/2024 Adult ADHD (ICD-10 - F90.9) 04/26/2024dult ADHD (ICD-10 - F90.9)ADHD symptoms persist. At this time will increase dose of 30 to 40 MG. Discussed adverse effects from medication including HTN, tachycardia, insomnia, irritability, headache, or decreased appetite. OARRS reviewed, patient history consistent with report. The patient verbalizes understanding with allquestions answered thoroughly and is in agreement with treatment plan. Currently at low risk for self harm. Denies ongoing feelings of hopelessness. Denies ongoing suicidal ideation, intent or plan in session. Follow up in 1 month & PRN. Continue current regimen.04/26/2024 Mild asthma with exacerbation, unspecified whether persistent (ICD-10 - J45.901) Refills sent on albuterol inhaler.05/27/2024dult ADHD (ICD-10 - F90.9) 06/25/2024du ADHD (ICD-10 - F90.9)07/24/2024du ADHD (ICD-10 - F90.9) 08/21/2024nxiety (ICD-10 - F41.9)Patient with symptoms well-controlled at this time. No side effects from medication. Will continue with current treatment plan. No SI/HI08/21/2024 ADHD (ICD-10 - F90.9)Patient feels like dose of Vyvanse currently too stimulating. Recently experienced decrease in life stressors. Will decrease dose and reevaluate at follow-up.09/17/2024Major depressive disorder, recurrent episode, moderate (ICD-10 - F33.1)Will start patient on fluoxetine today. Discussed risks and side effects of medication including possible nausea, headache, upset stomach, diarrhea, constipation, anxiety, irritability, and sexual dysfunction. Most mild side effects improve over 4-6 weeks of use. Please monitor for worsening of symptoms, especially suicidal ideations or morbid thoughts, and call office and or go to the emergency department immediately if this occurs. Patient verbalized understanding, in agreement with plan.09/17/2024 ADHD (ICD-10 - F90.9)ADHD stable, patient denies unfavorable side effects such as chest pain, stomach ache, or sleep difficulties. Weight is stable. OARRS reviewed. Continue current regimen. Refills will be provided at todays visit. Follow up in 2 months. 10/15/2024du ADHD (ICD-10 - F90.9)5Acquired hypothyroidism (ICD-10 - E03.9)11/14/2024dult ADHD (ICD-10 - F90.9)12/12/2024dult ADHD (ICD-10 - F90.9)01/13/2025 ADHD (ICD-10 - F90.9)ADHD stable, patient denies unfavorable side effects such as chest pain, stomach aches, or sleep dif ficulties. Weight is stable. OARRS reviewed. Continue current regimen. Follow up in 3 months & PRN.01/13/2025Mild asthma with exacerbation, unspecified whether persistent (ICD-10 - J45.901)01/28/2025Major depressive disorder, recurrent episode, moderate (ICD-10 - F33.1)02/06/2025Major depressive disorder, recurrent episode, moderate (ICD-10 - F33.1)02/10/2025dult ADHD (ICD-10 - F90.9) 02/17/2025dult ADHD (ICD-10 - F90.9)03/03/2025Major depressive disorder, recurrent episode, moderate (ICD-10 - F33.1)03/10/2025dult ADHD (ICD-10 - F90.9)03/17/2025Post traumatic stress disorder (PTSD) (ICD-10 - F43.10) 03/17/2025Major depressive disorder, recurrent episode, moderate (ICD-10 - F33.1)03/03/2025Post traumatic stress disorder (PTSD) (ICD-10 - F43.10) 02/17/2025Major depressive disorder, recurrent episode, moderate (ICD-10 - F33.1)02/06/2025dult ADHD (ICD-10 - F90.9)01/28/2025Post traumatic stress disorder (PTSD) (ICD-10 - F43.10)01/13/2025nxiety (ICD-10 - F41.9)Patient requesting to see a counselor. Will schedule with Randee Borjas.08/21/2024Hot flashes (ICD-10 - R23.2)11/14/2024Major depressive disorder, recurrent episode, moderate (ICD-10 - F33.1)10/18/2024Major depressive disorder, recurrent episode, moderate (ICD-10 - F33.1)09/17/2024Hot flashes (ICD-10 - R23.2)Did recommend pt get her Mammogram done so that she can discuss options for replacement with eitherOBGYN or Buderer. Did order labs for pt to do the hormonal consult at [facility] and given the packet.Pt educated on her current labs that were just completed and does possibly indicate perimenopause.4Acquired hypothyroidism (ICD-10 - E03.9)Pt understands to take the medication first thing in the morning on an empty stomach for best results. Potential side effects discussed. Pt aware of symptoms of under-active thyroid including, heat/cold intolerance, wt gain, thinning hair/hair loss, brittle nails. If you experience the above symptoms, return to office for lab work and possible adjustment of medication.04/26/2024Vertigo (ICD-10 - R42)Has been dizzy lately with positional changes. Will trial meclizine. Could be related to inner ear and fluid. Trial flonase and antihistamine also. Education on use of meclizine and possible s/e. Pt VU.5Acquired hypothyroidism (ICD-10 - E03.9)09/17/2024Perimenopausal symptoms (ICD-10 - N95.1) Pt educated on several nonpharmacological interventions for perimenopause: Avoid spicy foods, chocolate, etoh, control room temp/avoid humidity, avoid tight/restrictive clothing, dress in layers, smoking cessation, no hot baths/showers, relaxation techniques. Can try black cohosh also otc for symptoms. Recommended to see her OBGYN also bc overdue for pap. Another recommendation is to increase intake of phytoestrogens (isoflavones): apples, carrots, coffee, potatoes, yams, flaxseed, ginseng, sunflower seeds, sesame seeds) 10/18/2024dult ADHD (ICD-10 - F90.9)02/17/2025Post traumatic stress disorder (PTSD) (ICD-10 - F43.10)04/26/2024Hot flashes (ICD-10 - R23.2)Education on s/s of menopause and also keeping utd with her screenings for pap and mammogram. Has not been back to OBGYN. Recommended to schedule. Pt also will have labs done to check thyroid, maintenance labs and hormones.04/26/2024Low libido (ICD-10 - R68.82)Also reports low libido in addition to the hot flashes.04/26/2024reast cancer screening by mammogram (ICD-10 - Z12.31)Mammogram screening ordered. Faxed to [facility].04/26/2024olon cancer screening (ICD-10 - Z12.11)Refuses referral for colon cancer screening via colonoscopy. Agreeable to Cologuard, education on process and sending back via [employer]. Pt MART. Paper filled out and signed by pt. Will fax.10/18/2024OtherBody Mass Index: Care Instructions material was published, Body Mass Index: Care Instructions material was dezenrf8501/13/2025 OtherBody Mass Index: Care Instructions material was printed Plan Of Treatment Pending Test Test Name Order Date Cortisol 09/17/2024 Vitamin D 25 Hydroxy 09/17/2024 Dehydroepiandrosterone Sulfate Estradiol 09/17/2024 Estrone, Serum 09/17/2024 Progesterone 09/17/2024 Sex Hormone Binding Globulin 09/17/2024 Testosterone Free & Total 09/17/2024 Next Appt Details Provider Name:Ro flynn, 03/31/2025 11:15:00 AM, [address], [place], [address], Provider Name:Ro flynn, 04/07/2025 11:45:00 AM, [address], [place], [address], Provider Name:Ro flynn, 04/14/2025 11:00:00 AM, [address], [place], [address], Provider Name:Brittney Bolivar ede, 04/21/2025 09:30:00 AM, [address], [address], [place], [address], Provider Name:Ro flynn, 04/21/2025 10:15:00 AM, [address], [place], [address], Provider Name:Ro flynn, 04/28/2025 12:30:00 PM, [address], [place], [address], Insurance Providers Payer Name Payer Address Payer Phone Subscriber Number Group Number Insured Name Patient Relationship to Insured Coverage Start Date Coverage End Date [employer] [place] [employer] [address] [place] [address] [id number] PEÑAMarquita Aguilar - patient is the aereude9407/14/2022[facility] [address] [place] [id number] Self - patient is the lwbafqi3107/14/2022[facility] 07/05/22. [address] [place] [id number] PEÑAMarquita Aguilar - patient is the [id number]/25/[address] [facility] 07/05/22[address] [place] [id number] - patient is the yoqslug0501/03/2018[facility] [place] MedicaidPO [address] [place] [phone] [id number] - patient is the etwufen6006/05/2022 [facility] [address] [place] [id number] KANDACEISHAJORDYMarquita Aguilar - patient is the gcxmskw4906/05/2024 Medications Administered Medication Instructions Date of Administration Dosage Notes TORADOL mL Medical (General) History Medical History History ICD Code Mild Intermittent Asthma HypothyroidismAnxiety and DepressionPTSDADHDVitiligoRetrolisthesis of C3 on C4 Surgical History Surgery Date(Month/Year) Right wrist surgeries x 3 AblationTubal [id number]
[2025-03-25] MEDS: DIPHTH,PERTUSS(ACELL),TET VAC 0.5 ML SYRINGE IM (17:19)
[2025-03-25] MEDS: LIDOCAINE HCL 1% 100 MG/10 ML MDV INJ (17:26)
== END 2025-03-25 17:29 | disposition home or self-care (01) ==
PROVIDERS: Emergency Provider Emergency Medicine
DX: S61.211A Laceration without foreign body of left index finger without damage to nail, initial encounter (principal); W45.8XXA Other foreign body or object entering through skin, initial encounter; Z23 Encounter for immunization
CPT/HCPCS: 12001; 90471; 90715; 99283